=== PATIENT | female | born 1965 | race Caucasian/White ===

== ENCOUNTER 2021-07-24 03:04 | Emergency (ER) | payer OTHER ==
[2021-07-24 03:37] LABS: BASOPHIL 0.7 % (0-2); EOSINOPHIL 1.1 % (0-5); HCT 39.5 % (37.0-47.0); HGB 13.1 g/dl (12.5-16.0); MCH 30.4 pg (25.0-31.0); MCHC 33.2 g/dL (32.0-36.0); MCV 91.6 fL (78.0-100.0); MONOCYTE 8.9 % (0-12); MPV 9.7 fL (6.0-9.5); NRBC 0; PLT 307 K/uL (150-400); RBC 4.31 M/uL (4.20-5.40); RDW 13.2 % (11.5-14.0); WBC 12.7 K/uL (4.0-10.5)
[2021-07-24 03:48] LABS: INR 1.04 (0.9-1.2); PTT 24.8 SECONDS (24.4-34.7)
[2021-07-24 03:56] LABS: ALBUMIN 3.9 g/dL (3.4-5.0); BILIRUBIN - TOTAL 0.3 mg/dL (0.2-1.0); BUN/CREAT RATIO (CALC) 14.1 RATIO; CREATININE 0.71 mg/dL (0.51-0.95); GLOBULIN (CALCULATION) 3.5 g/dL; POTASSIUM 2.9 mmol/L (3.5-5.1); TOTAL PROTEIN 7.4 g/dL (6.4-8.2)
[2021-07-24 05:32] LABS: BILIRUBIN NEGATIVE (NEGATIVE); BLOOD NEGATIVE Ery/uL (NEGATIVE); CLARITY CLEAR (CLEAR); COLOR YELLOW (YELLOW); GLUCOSE (U) NORMAL (NORMAL); LEUKOCYTES NEGATIVE Leu/uL (NEGATIVE); NITRITE NEGATIVE (NEGATIVE); PROTEIN NEGATIVE (NEGATIVE); SPECIFIC GRAVITY >=1.030 (1.001-1.030); UROBILINOGEN 0.2 mg/dL (0.2-1.0); pH 5.5 (5.0-9.0)
[2021-07-24] MEDS ORDERED: ONDANSETRON ODT4 MG SL (05:35)
[2021-07-24] MEDS ORDERED: ANTIVERT12.5 MG PO (05:35)
== END 2021-07-24 05:52 | disposition home or self-care (01) ==
LOC: FER 03:04
PROVIDERS: Emergency Medicine Emergency Medical Services
DX: T67.5XXA Heat exhaustion, unspecified, initial encounter (principal); F17.210 Nicotine dependence, cigarettes, uncomplicated; F41.9 Anxiety disorder, unspecified; Z79.899 Other long term (current) drug therapy; X58.XXXA Exposure to other specified factors, initial encounter; Z20.822 Contact with and (suspected) exposure to COVID-19
CPT/HCPCS: 36415; 80053; 81003; 84484; 85025; 85610; 85730; 93005; J2405; J7030; U0002